=== PATIENT | male | born 1970 | race Hispanic/Latino ===

== ENCOUNTER 2018-03-07 13:58 | Emergency (ER) | payer OTHER ==
[2018-03-07 14:51] LABS: Bilirubin Negative (Negative); Blood, Urine Moderate (Negative); Clarity CLEAR (Clear); Glucose, Urine (Dipstick) Negative (Negative); Leukocyte Negative (Negative); Nitrite Negative (Negative); Protein, Urine (Dipstick) Negative (Neg-Trace); Specific Gravity, Urine 1.007 (1.002-1.036); Urobilinogen 0.2 mg/dL (0.2-1.0)
[2018-03-07 14:53] LABS: Bacteria/HPF None Seen HPF (None Seen); Hyaline Casts/LPF 0-3 HYALINE CAST LPF (0-3 Hyaline); Squamous Epithelial None Seen HPF (0-3); WBC/HPF 0-3 HPF (0-3)
[2018-03-07] MEDS ORDERED: Ketorolac Tromethamine 30 MG/ML VIAL ONE (14:58)
[2018-03-07 15:06] LABS: #Eosinphils 0.1 thou/uL (0.0-0.7); #Lymphocytes 1.4 thou/uL (1.20-3.40); #Monocytes 0.5 thou/uL (0.11-0.59); #Neutrophils 5.7 thou/uL (1.40-6.50); %Basophils 0.4 % (0.0-1.0); %Eosinophils 0.8 % (0.0-10.0); %Monocytes 6.6 % (0.0-10.0); %Neutrophils 74.2 % (42.0-75.0); Hemoglobin 13.7 g/dL (14.0-18.0); Mean Corpuscular HGB CONC 35.2 g/dL (32.0-36.0); Mean Corpuscular Hemoglobin 30.7 pg (27.0-31.0); Mean Corpuscular Volume 87.3 fL (78.0-98.0); Mean Platelet Volume 8.1 fL (7.4-10.4); Platelet Count 195 thou/uL (130-400); RBC Distribution Width 11.8 % (11.5-14.5); Red Blood Cell (RBC) Count 4.46 mill/uL (4.70-6.10); White Blood Cell (WBC) Count 7.7 thou/uL (4.8-10.8)
[2018-03-07 15:30] LABS: ALT (SGPT) 20 U/L (8-55); AST (SGOT) 18 U/L (5-34); Albumin 4.4 g/dL (3.5-5.0); Alkaline Phosphatase 99 U/L (40-150); Anion Gap 11 mmol/L (10-20); BUN (Urea Nitrogen) 20 mg/dL (8.9-20.6); Bilirubin, Total 0.4 mg/dL (0.2-1.2); Calc. Creatinine Clearance 0 mL/min (70-130); Calcium 8.8 mg/dL (7.8-10.44); Carbon Dioxide 24 mmol/L (22-29); Chloride 108 mmol/L (98-107); Estimated GFR-MDRD Greater than 90; Globulin 2.9 g/dL (2.4-3.5); Glucose 103 mg/dL (70-105); Potassium 3.9 mmol/L (3.5-5.1); Protein, Total 7.3 g/dL (6.0-8.3); Sodium 139 mmol/L (136-145)
[2018-03-07] MEDS ORDERED: Morphine 4 MG/ML VIAL ONE (17:13)
--- NOTE | 2018-03-07 17:19 | CT ---
CT ABDOMEN AND PELVIS WITHOUT CONTRAST: History: Left flank pain. Low back pain. FINDINGS: Absence of oral and IV Absence of oral and IV contrast reduces the sensitivity of the exam particular ly for evaluation of solid organs and bowel. The lung bases are unremarkable. No free air or free fluid is seen in the abdomen or pelvis. No calci fied gallstones are identified. There are calculi in the right kidney. No calculi are seen in the lef t kidney, right ureter or the urinary bladder. There is a 4 mm calculus in the left UPJ with minimal hydronephrosis. Mild chronic diverticulosis is present. A normal appearing appendix is seen. There ar e mild degenerative changes of the spine. A small hiatal hernia is present. There is a 12 mm exophytic solid nodule in the anterior aspect of the right kidney inferior pole whic h is stable since 08-24-14. IMPRESSION: 1. None obstructing right renal calculi. 2. 4 mm left UPJ calculus and mild hydronephrosis. 3. Mild colonic diverticulosis. 4. Small hiatal hernia. 5. Stable 12 mm solid appearing mass arising from inferior pole of the right kidney since 08-24-14. POS: [facility]
== END 2018-03-07 17:25 | disposition home or self-care (01) ==
LOC: ERS 13:58
DX: N13.2 Hydronephrosis with renal and ureteral calculous obstruction (principal); N28.89 Other specified disorders of kidney and ureter; I10 Essential (primary) hypertension
CPT/HCPCS: 74176; 80053; 81003; 81015; 85025; 87086; 96361; 96374; 96375; J1885; J2270

== ENCOUNTER 2018-04-12 10:53 | Outpatient (CLI) | payer OTHER ==
--- NOTE | 2018-04-12 13:37 | CT ---
CT OF ABDOMEN AND PELVIS PERFORMED WITHOUT CONTRAST ENHANCEMENT: HISTORY: Renal calculi. COMPARISON: 03/07/18 study. FINDINGS: The lung bases are clear. The liver, spleen, pancreas, and gallbladder regions appear unremarkable on this noncontrast study. Right and left adrenal glands are normal in appearance. An exophytic lesion involving the lower pole of the right kidney measures 12 mm in size, stable as compared to the prior exam. CT [facility] t numbers are 18, which are somewhat high for a cyst. It could represent a solid lesion or possibly hemorrhagic-type cyst. I also does not appear changed in size since the 08/24/14 study. Two right-si ded renal calculi are stable in appearance. No obstruction of the right kidney. Left-sided hydronep hrosis and hydroureter is related to a distal left ureteral calculus measuring 6 mm in size. It is n ow at or slightly below the level of the pelvis rim. It has migrated distally as compared to the brice or exam. There are small periaortic nodes slightly more numerous than typically seen, but not signif icantly enlarged, unchanged since the prior study. CT OF PELVIS PERFORMED WITHOUT CONTRAST ENHANCEMENT: Diverticulosis of the descending sigmoid colon regions is stable. No adenopathy or mass. The append ix is normal. IMPRESSION: The 6 m left ureteral calculus has not migrated distally. It is approximately the level of the pelvi c rim and is associated with mild left-sided hydronephrosis. The right-sided nonobstructing renal ca lculi are stable. Exophytic lesion involving the lower pole of the right kidney is also unchanged. POS: [facility]
== END 2018-04-12 10:54 | disposition home or self-care (01) ==
LOC: CT 10:53
PROVIDERS: ATTEND Urology
DX: N13.2 Hydronephrosis with renal and ureteral calculous obstruction (principal); N28.9 Disorder of kidney and ureter, unspecified
CPT/HCPCS: 74176

== ENCOUNTER 2018-04-19 16:21 | Outpatient (CLI) | payer OTHER ==
[2018-04-19 17:18] LABS: Bilirubin Negative (Negative); Blood, Urine Small (Negative); Clarity CLEAR (Clear); Glucose, Urine (Dipstick) Negative (Negative); Leukocyte Negative (Negative); Nitrite Negative (Negative); Protein, Urine (Dipstick) Negative (Neg-Trace); Specific Gravity, Urine 1.018 (1.002-1.036); Urobilinogen 0.2 mg/dL (0.2-1.0); pH, Urine 6.5 (5.0-9.0)
[2018-04-19 17:23] LABS: Hemoglobin 14.1 g/dL (14.0-18.0); Mean Corpuscular HGB CONC 34.3 g/dL (32.0-36.0); Mean Corpuscular Hemoglobin 30.1 pg (27.0-31.0); Mean Corpuscular Volume 87.6 fL (78.0-98.0); Mean Platelet Volume 8.1 fL (7.4-10.4); Platelet Count 268 thou/uL (130-400); RBC Distribution Width 11.6 % (11.5-14.5); Red Blood Cell (RBC) Count 4.68 mill/uL (4.70-6.10); White Blood Cell (WBC) Count 6.8 thou/uL (4.8-10.8)
[2018-04-19 17:29] LABS: Bacteria/HPF None Seen HPF (None Seen); Hyaline Casts/LPF 0-3 HYALINE CAST LPF (0-3 Hyaline); Pathc Cast-AUWi Flag 0.14 (0-2.49); Squamous Epithelial None Seen HPF (0-3); WBC/HPF 0-3 HPF (0-3)
[2018-04-19 17:38] LABS: Anion Gap 11 mmol/L (10-20); BUN (Urea Nitrogen) 16 mg/dL (8.9-20.6); Calc. Creatinine Clearance 0 mL/min (70-130); Calcium 9.3 mg/dL (7.8-10.44); Carbon Dioxide 27 mmol/L (22-29); Chloride 104 mmol/L (98-107); Estimated GFR-MDRD 74; Glucose 91 mg/dL (70-105); Potassium 3.9 mmol/L (3.5-5.1); Sodium 138 mmol/L (136-145)
--- NOTE | 2018-04-20 15:37 | EKG ---
Test Reason : Blood Pressure : / mmHG Vent. Rate : 073 BPM Atrial Rate : 073 BPM P-R Int : 140 ms QRS Dur : 144 ms QT Int : 446 ms P-R-T Axes : 057 050 004 degrees QTc Int : 491 ms Normal sinus rhythm Right bundle branch block Abnormal ECG No previous ECGs available Confirmed by STEVEN HANSEN, DR. Lopez ([id number]) on 04/20/2018 3:36:32 PM Referred By: JANINE Confirmed By:DR. John HARRIS MD
== END 2018-04-19 16:22 | disposition home or self-care (01) ==
LOC: LABBT 16:21
PROVIDERS: ATTEND Urology
DX: Z01.818 Encounter for other preprocedural examination (principal); N20.2 Calculus of kidney with calculus of ureter; N29 Other disorders of kidney and ureter in diseases classified elsewhere; Q61.9 Cystic kidney disease, unspecified
CPT/HCPCS: 80048; 81001; 85027; 87086; 93005; 93010

== ENCOUNTER 2018-04-20 08:31 | Day surgery (SDC) | payer OTHER ==
[2018-04-19 16:38] VITALS: BMI 30.5
[2018-04-20] MEDS ORDERED: Levofloxacin 500 mg/D5W 100 ml Premix Bag ONE (08:49)
[2018-04-20] MEDS ORDERED: Iothalamate Meglumine 60% 50 ML VIAL FS ONE (09:39)
[2018-04-20] MEDS ORDERED: HYDROmorphone 0.5 MG/0.5 ML SYRINGE ONE (09:50)
[2018-04-20] MEDS ORDERED: Midazolam HCl 2 mg/2 ml Vial ONE (09:50)
--- NOTE | 2018-04-20 10:28 | RAD ---
ABDOMEN ONE VIEW: History: 47-year-old male for pre procedural evaluation. Comparison: 04-02-18 FINDINGS: Small right renal calculus. 0.5 x 0.8 cm diameter distal left ureteral calculus adjacent to the left sacrum. IMPRESSION: Distal left ureteral calculus. Small nonobstructing right renal calculus. POS: [facility]
[2018-04-20] MEDS ORDERED: Oxybutynin 5 MG TAB ONE (11:52)
[2018-04-20] MEDS ORDERED: Phenazopyridine HCl 97.5 MG TABLET ONE (11:53)
[2018-04-20] MEDS ORDERED: Ondansetron HCl/PF 4 MG/2 ML Vial ONE (14:39)
[2018-04-20] MEDS ORDERED: Lidocaine 1% PF 5 ML VIAL ONE (14:39)
[2018-04-20] MEDS ORDERED: Dexamethasone 20 MG/5 ML VIAL ONE (14:39)
[2018-04-20] MEDS ORDERED: PROPOFOL 200 MG/20 ML VIAL ONE (14:39)
--- NOTE | 2018-04-20 15:45 | OP ---
DATE OF SERVICE: 04/20/2018 PREOPERATIVE DIAGNOSIS: Left ureteral stone. POSTOPERATIVE DIAGNOSIS: Left ureteral stone. PROCEDURE: Cystoscopy, left ureteroscopy, left holmium laser lithotripsy, stone basketing, stent placement 6 x 24. SURGEON: Angelina Martinez M.D. ANESTHESIA: General with laryngeal mask airway. FINDINGS: Adequate fragmentation of the very impacted mid to distal stone that was adequately fragmented and removed. COMPLICATIONS: None. SPECIMEN: Left ureteral stone. ESTIMATED BLOOD LOSS: Minimal. DRAINS REMAINING: A 6 x 24 German double-J. INDICATIONS: The patient is a 47-year-old male, who was followed in the office for a ureteral stone that had started of proximal and had moved more distal, but was persistent with intermittent bouts of renal colic, so was set up for definitive therapy. PROCEDURE IN DETAIL: The patient was brought into the room by Anesthesia, laid on the table in supine position. After receiving general anesthetics, his legs placed in lithotomy position with the left leg and the right leg elevated and he was prepped and draped in sterile fashion. Using a 21-German cystoscope and 30-degree lens the urethra was traversed and the bladder inspected. Ureteral orifices were identified and in proper position. A Pollack catheter with the aide of a wire was advanced up to the level of the stone. The wire easily passed the stone with a Pollack catheter could not have significant gentle and steady pressure. The Pollack catheter still could not be passed, so in attempting to pull out the Pollack, the wire came out as well. So at this point , in order to get a back in safely, a Glidewire was used and pass the stone easily again, but again the Pollack would not pass, so the Glidewire was changed for a regular wire. Pollack catheter was removed and then a 12 German 6 cm dilating balloon was used to dilate the ureteral orifice to a maximum pressure of 12 mmHg. This was taken down and then removed leaving the wire in place. The scope was broken apart and bladder drained and the rigid ureteroscope was used to get up to the level of the stone, which across the vessels, loose fragmented into multiple pieces that appeared to be small enough to be able to basketed, so the laser fiber was removed and a basket was placed. I was able to grab the two distal fragments easily and placed them in the bladder and then returned to the remaining 2 of the fragments, but they were so still wedged even though fragmented that I could not successfully get the basket anywhere other than right next to the wire and it went next to the wire it would not engage either stone, so the laser fiber was brought back in further fragments. Once this was done, all of them were able to be basketed out and sent for specimen and a final path of ureter above the area of the impacted stone revealed no significant fragments remaining, so the ureteroscope was removed. The cystoscope back fed over the wire and at this point, the Pollack catheter could easily go beyond that area and measurements were taken for a 6 x 24 double-J stent, which was placed over a wire with good coil visualized in the renal pelvis after pulling it down with a grasper from the upper pole and a good coil in the bladder visualized via cystoscopy. The fragments that had been dropped in the bladder had already been removed out and sent so at this point, the cystoscope was removed carefully leaving the string intact, which was then secured to the patient's penis. The bladder itself was manually decompressed with crede so as not to disturb the string and stent. The patient was awakened and transferred to PACU in stable condition. YANIQUE
== END 2018-04-20 13:00 | disposition home or self-care (01) ==
LOC: SDC 08:31
PROVIDERS: ATTEND Urology
PROC: 0T778DZ Dilation of Left Ureter with Intraluminal Device, Via Natural or Artificial Opening Endoscopic (ICD-10-PCS; principal; 2018-04-20)
PROC: 0TF78ZZ Fragmentation in Left Ureter, Via Natural or Artificial Opening Endoscopic (ICD-10-PCS; principal; 2018-04-20)
DX: N20.2 Calculus of kidney with calculus of ureter (principal); N23 Unspecified renal colic; I10 Essential (primary) hypertension; E78.1 Pure hyperglyceridemia; Z79.899 Other long term (current) drug therapy
CPT/HCPCS: 74018; 76000; 82365; 88300; C1758; C1769; J1100; J1170; J1956; J2001; J2250; J2405; J2704; Q9961

== ENCOUNTER 2019-07-24 16:57 | Emergency (ER) | payer BC ==
[2019-07-24] MEDS ORDERED: Meclizine HCl 25 MG TAB ONE (17:21)
--- NOTE | 2019-07-24 17:59 | CT ---
Head CT without contrast 07/24/2019: Comparison: None HISTORY: Vertigo, fall TECHNIQUE: Axial CT imaging at 5 mm intervals from vertex through skull base without contrast FINDINGS: Imaged paranasal sinuses and mastoid air cells are well aerated. No displaced calvarial fra cture. No intracranial hemorrhage, midline shift, mass effect, or ventricular enlargement. IMPRESSION: No acute findings.
[2019-07-24 18:15] LABS: #Eosinphils 0.1 thou/uL (0.0-0.7); #Lymphocytes 2.2 thou/uL (1.20-3.40); #Monocytes 0.4 thou/uL (0.11-0.59); #Neutrophils 5.2 thou/uL (1.40-6.50); %Basophils 0.4 % (0.0-1.0); %Eosinophils 0.9 % (0.0-10.0); %Lymphocytes 27.9 % (21.0-51.0); %Monocytes 5.2 % (0.0-10.0); %Neutrophils 65.7 % (42.0-75.0); Hemoglobin 14.3 g/dL (14.0-18.0); Mean Corpuscular HGB CONC 36.1 g/dL (32.0-36.0); Mean Corpuscular Hemoglobin 31.2 pg (27.0-31.0); Mean Corpuscular Volume 86.5 fL (78.0-98.0); Mean Platelet Volume 8.3 fL (7.4-10.4); Platelet Count 217 thou/uL (130-400); RBC Distribution Width 11.6 % (11.5-14.5); Red Blood Cell (RBC) Count 4.59 mill/uL (4.70-6.10); White Blood Cell (WBC) Count 7.8 thou/uL (4.8-10.8)
[2019-07-24 18:22] LABS: Bilirubin Negative (Negative); Blood, Urine Negative (Negative); Clarity Clear (Clear); Glucose, Urine (Dipstick) Normal (Negative); Leukocyte Negative Leu/uL (Negative); Nitrite Negative (Negative); Protein, Urine (Dipstick) Negative (Neg-Trace); Urobilinogen Normal mg/dL (Less than 2)
[2019-07-24 18:33] LABS: Amphetamine Not Detected (NotDetected); Barbiturates Screen Not Detected (NotDetected); Benzodiazepine Screen Not Detected (NotDetected); Cocaine Metabolite Screen Not Detected (NotDetected); Medtox Control Line Valid? VALID (VALID); Medtox Reader # READER 4; Methadone Not Detected (NotDetected); Methamphetamine Not Detected (NotDetected); Opiate Screen Not Detected (NotDetected); Oxycodone Screen Not Detected (NotDetected); Phencyclidine (PCP) Not Detected (NotDetected); THC/Cannabinoid Screen Not Detected (NotDetected); Tricyclic Screen Not Detected (NotDetected)
[2019-07-24 18:39] LABS: ALT (SGPT) 26 U/L (8-55); AST (SGOT) 21 U/L (5-34); Albumin 4.5 g/dL (3.5-5.0); Alkaline Phosphatase 93 U/L (40-110); Anion Gap 13 mmol/L (10-20); BUN (Urea Nitrogen) 16 mg/dL (8.9-20.6); Bilirubin, Total 0.4 mg/dL (0.2-1.2); CK (CPK) 317 U/L (30-200); Calc. Creatinine Clearance 0 mL/min (70-130); Calcium 9.1 mg/dL (7.8-10.44); Carbon Dioxide 25 mmol/L (22-29); Chloride 107 mmol/L (98-107); Estimated GFR-MDRD Greater than 90; Glucose 126 mg/dL (70-105); Potassium 3.4 mmol/L (3.5-5.1); Protein, Total 7.5 g/dL (6.0-8.3); Sodium 142 mmol/L (136-145)
== END 2019-07-24 19:14 | disposition home or self-care (01) ==
LOC: ERS 16:57
DX: E86.0 Dehydration (principal); R55 Syncope and collapse; I10 Essential (primary) hypertension; E78.00 Pure hypercholesterolemia, unspecified; Z79.899 Other long term (current) drug therapy
CPT/HCPCS: 36416; 70450; 80053; 80306; 81003; 82550; 83735; 84484; 85025; 93005; 96360; 96361; J8597